=== PATIENT | male | born 1965 | race Caucasian/White ===

== ENCOUNTER 2025-03-13 17:36 | Emergency (ER) | payer BC, SELFPAY ==
--- NOTE | ~2025-03-13 | XR_ITS ---
CLINICAL HISTORY: pain 3 views lumbar spine Comparison: None Findings: Normal alignment. No acute fractures or dislocation. Moderate spondylosis at L5-S1 with disc space narrowing, endplate sclerosis, and facet arthropathy. IMPRESSION: No acute findings. Moderate spondylosis at L5-S1 with disc space narrowing, endplate sclerosis, and facet arthropathy. This document has been electronically signed by: Desi Fry MD on 03/13/2025 20:36:25
[2025-03-13 17:42] VITALS: BP 162/99; PULSE 76; O2SAT 99
[2025-03-13 17:48] VITALS: BP 146/79; PULSE 73; RESP 18; TEMP 36.8; O2SAT 98; BMI 32.4
[2025-03-13] MEDS: ondansetron HCL 4 MG/2 ML VIAL IVPUSH (19:28)
[2025-03-13] MEDS: dexAMETHasone sod phosphate 10 MG/ML VIAL IVPUSH (19:28)
[2025-03-13] MEDS: Morphine Sulfate 4 MG/ML CARTRIDGE IVPUSH (19:28)
[2025-03-13 19:30] VITALS: BP 142/76; PULSE 66; RESP 16; TEMP 37.1; O2SAT 95
--- NOTE | 2025-03-13 21:45 | ED_ITS ---
HPI - General Adult General Chief complaint: Back Pain/Injury Stated complaint: hurt back lifting golf bag Time Seen by Provider: 03/13/25 18:55 Source: patient, RN notes reviewed and old records reviewed Mode of arrival: ambulatory Limitations: no limitations History of Present Illness ED Provider: Kendy HPI narrative: 60-year-old male presents for evaluation of back pain. Patient reports a history of back pain. He reports 20 years ago he required an injection to his lower spine due to 3 disc herniations. Patient reports that his pain initially started today when he was attempting to take his golf bag out of the back of his car. he felt a sharp pain in his right lower back in weakness with numbness going down his toes the patient reports that he was able to stretch his back out and the pain improved he reports that he then went to get moseley for his for mother's day and when he bent down he felt a sharp pain again which caused him to fall to his knees he laid on the ground in his home for about an hour doing stretches which relieved the pain somewhat but any time he tried to move his pain worsened he reports that he can not stand up without the pain becoming severe denies any fevers, chills. He is not an IV drug abuser nor has he ever been Related Data Previous Rx's ?Medication ?Instructions ?Recorded dexamethasone 4 mg tablet 4 mg PO BID #6 tabs 03/13/25 oxycodone 5 mg tablet 5 mg PO Q6H PRN severe pain (scale 03/13/25 score 7-10) #12 tabs Allergies Allergy/AdvReac Type Severity Reaction Status Date / Time No Known Allergies Allergy Verified 03/13/25 17:53 Review of Systems 2 Constitutional: Constitutional: Denies body ache(s), Denies chills and Denies headache(s) Eyes: Eyes: Denies blurry vision ENT: Denies vertigo, Denies dizziness and Denies headache(s) Cardiovascular: Cardiovascular: Denies chest pain Gastrointestinal: Gastrointestinal: Denies abdominal pain, Denies nausea and Denies vomiting Musculoskeletal: Musculoskeletal: Reports back pain, Denies arthralgias, Denies joint swelling, Denies limited range of motion, Reports numbness, Reports radiating pain into limb, Reports stiffness and Reports tingling Integumentary/Breasts: Skin/Breast: Denies acne and Denies rash Neurologic: Denies vertigo, Denies dizziness, Denies headache(s), Reports numbness and Reports tingling Psychiatric: Psychiatric: Denies anxiety PMFSH Social History Social History Advance Directives: No Advance Directives Information Provided: Yes Do you have a plan to hurt others: No Plan Physical Exam ED Vital Signs: Vital Signs - 24 hr 03/13/25 17:48 03/13/25 19:30 03/14/25 06:14 Temperature 98.3 F 98.7 F 97.1 F Pulse Rate 73 66 64 Respiratory Rate 18 16 18 Blood Pressure 146/79 H 142/76 H 124/73 Pulse Oximetry 98 95 95 Oxygen Delivery Method Room Air Room Air Room Air BMI result Body Mass Index 32.4 Const General: healthy appearing, comfortable, no acute distress, alert and awake Nutritional Appearance: well nourished Orientation/consciousness: patient oriented x3 HENMT Head: Yes normocephalic and Yes atraumatic Eyes Eyelids: Yes eyelids normal Conjunctivae: conjunctivae normal Sclerae: sclerae normal Corneas: corneas normal Pupils: Equal, round and reactive pupils present EOM: EOMs intact bilaterally Neck Neck: Yes full ROM Resp Effort & Inspection: normal respiratory effort, able to speak in complete sentences and not labored Back/Spine/Pelvis Other: tenderness to the right lumbar paraspinous muscles. No vertebral tenderness. No step-off deformities. Straight leg raise positive bilaterally. Skin General skin exam: elasticity normal Neuro Other: I was initially unable to evaluate the patient has strength to lower extremities due to his pain. After receiving medication strength to bilateral lower extremities with major muscle groups 5/5 bilaterally to the quadriceps muscle group, hamstring muscle group as well as plantar flexion and dorsiflexion General: patient oriented x3 Cranial nerves: Yes Equal, round and reactive pupils present and Yes Bilaterally intact EOM present Cognition (Neuro): normal cognition Extrem Other: Moving all extremities well without any obvious deformities Medications Administered Generic Name Dose Route Start Last Admin Trade Name Freq PRN Reason Stop Dose Admin Oxycodone HCl 5 mg 03/13/25 22:05 03/14/25 06:02 Oxycodone Hcl Immed Release 5 Mg Tablet PO 5 mg Q6H PRN Administration Pain, Severe (Pain Scale 7-10) Discontinued Medications Generic Name Dose Route Start Last Admin Trade Name Freq PRN Reason Stop Dose Admin Cyclobenzaprine HCl 10 mg 03/14/25 07:39 03/14/25 08:03 Cyclobenzaprine Hcl 10 Mg Tablet PO 03/14/25 07:40 10 mg ONCE ONE Administration Dexamethasone Sodium Phosphate 10 mg 03/13/25 19:01 03/13/25 19:28 Dexamethasone Sod Phosphate 10 Mg/Ml Vial IVPUSH 03/13/25 19:02 10 mg ONCE ONE Administration Hydromorphone HCl 1 mg 03/13/25 21:38 03/13/25 22:03 Hydromorphone Hcl 1 Mg/Ml Syringe IVPUSH 03/13/25 21:39 1 mg ONCE ONE Administration Protocol Morphine Sulfate 4 mg 03/13/25 19:01 03/13/25 19:28 Morphine Sulfate 4 Mg/Ml Cartridge IVPUSH 03/13/25 19:02 4 mg ONCE ONE Administration Protocol Ondansetron HCl 4 mg 03/13/25 19:01 03/13/25 19:28 Ondansetron Hcl 4 Mg/2 Ml Vial IVPUSH 03/13/25 19:02 4 mg ONCE ONE Administration Medical Decision Making Medical Decision Making MDM Narrative: 60-year-old male presents for evaluation of acute on chronic back pain after lifting a golf bag 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 after pain medication, the patient's exam is quite reassuring, he has no weakness, he is not hyper reflexive. He is able to stand but still complains of pain to his lower back. his x-ray shows degenerative changes. He has no fever, he is not on active IV drug abuser, I doubt infectious process. Is likely that he has muscle spasms related to his injury today. No warning signs for cauda equina syndrome. There is no weakness, hyperreflexia, bladder or bowel incontinence or retention. I discussed options with the patient, including sending him home with analgesia and steroids with muscle relaxers versus staying in the hospital overnight for physical therapy and case management evaluation. The patient does not feel he will be able to get out of his car and into his home safely and would like to stay in the hospital overnight Patient 60 years old presented with chronic back pain. Was evaluated by physical therapy. Patient to be discharged home. In stable condition. Case management evaluated patient. Currently in stable condition. Patient was able to ambulate without any difficulty. There is no bowel urinary incontinence. There is no focal weakness. No signs of cauda equinus syndrome. Differential Diagnosis Differential Diagnoses: The differential diagnosis associated with the presentation includes acute on chronic back pain Radiculopathy Muscle strain Cauda equina syndrome less likely Admission/Observation Consideration of admission/observation: Escalation of care including admission/observation considered Lab Data 03/13/25 21:53 03/13/25 21:53 Labs: Lab Results 03/13/25 Range/Units 21:53 WBC 7.5 (4.8-10.8) X10*3/uL RBC 4.72 (4.60-5.80) X10*6/uL Hgb 16.0 (14.0-18.0) g/dl Hct 45.6 (42.0-52.0) % MCV 96.6 (80.0-98.0) fL MCH 33.9 H (27.0-33.0) pg MCHC 35.1 (31.0-36.0) g/dl RDW 13.2 (11.0-16.0) % Plt Count 229 (160-400) X10*3/uL MPV 8.4 L (9.4-12.4) fL Immature Gran % (Auto) 0.1 (0.0-0.4) % Neut % (Auto) 85.1 H (45-73) % Lymph % (Auto) 11.9 L (20-40) % [place] % (Auto) 1.7 L (2-11) % Eos % (Auto) 0.7 (0-4) % Baso % (Auto) 0.5 (0-2) % Lymph # (Auto) 0.9 L (1.2-4.9) X10*3/uL [place] # (Auto) 0.1 (0.1-1.2) X10*3/uL Eos # (Auto) 0.1 (0.0-0.4) X10*3/uL Baso # (Auto) 0.0 (0.0-0.2) X10*3/uL Abs Immat Gran (auto) 0.01 (0.00-0.03) X10*3/uL Absolute Neuts (auto) 6.4 (2.0-8.3) x10*3/uL Absolute Nucleated RBC 0.000 (0.0-0.012) X10*3/uL Nucleated RBC % (auto) 0.0 (0.0-0.2) /100WBC Sodium 140 (135-145) mmol/L Potassium 3.9 (3.3-5.1) mmol/L Chloride 103 (96-108) mmol/L Carbon Dioxide 27 (22-29) mmol/L Anion Gap 14 (12-20) BUN 10 (9-16) mg/dL Creatinine 0.83 (0.5-1.4) mg/dL Estim Creat Clear Calc 101.2 Estimated GFR > 60 Random Glucose 132 H (60-115) mg/dL Calcium 9.5 (8.4-10.2) mg/dL Radiology Impression Discussion of test interpretation with radiology: I have reviewed the radiologist's reading. Radiologist Impression: Findings: Normal alignment. No acute fractures or dislocation. Moderate spondylosis at L5-S1 with disc space narrowing, endplate sclerosis, and facet arthropathy. IMPRESSION: No acute findings. Moderate spondylosis at L5-S1 with disc space narrowing, endplate sclerosis, and facet arthropathy. This document has been electronically signed by: Desi Fry MD on 03/13/2025 20:36:25 Discharge Plan Discharge Clinical Impression: Low back pain Patient Disposition: Home, Self-Care Instructions: Acute Low Back Pain (ED) Additional Instructions: Take dexamethasone twice daily for the next 3 days. Your x-ray shows degenerative changes of your lower back you may benefit from an outpatient MRI you may use ibuprofen / Tylenol for pain you may use oxycodone for severe, breakthrough pain. This may make you drowsy, do not drink alcohol or drive after taking it Prescriptions: New oxycodone 5 mg tablet 5 mg PO Q6H PRN (Reason: severe pain (scale score 7-10)) Qty: 12 0RF Rx Instructions: Partial Fill upon patient request. dexamethasone 4 mg tablet 4 mg PO BID Qty: 6 0RF Referrals: Ko Giord[facility] [Primary Care Provider] - 03/16/25 Print Language: Lithuanian
[2025-03-13 22:01] LABS: MANUAL DIFF FLAG NO
[2025-03-13 22:02] LABS: Basophils Percent Auto 0.5 % (0-2); Eosinophils Absolute Auto 0.1 X10*3/uL (0.0-0.4); Eosinophils Percent Auto 0.7 % (0-4); Hematocrit 45.6 % (42.0-52.0); Imm Gran Abs Auto 0.01 X10*3/uL (0.00-0.03); Imm Gran Pct Auto 0.1 % (0.0-0.4); Lymphocytes Absolute Auto 0.9 X10*3/uL (1.2-4.9); Lymphocytes Percent Auto 11.9 % (20-40); Mean Corpuscular HGB Conc 35.1 g/dl (31.0-36.0); Mean Corpuscular Hemoglobin 33.9 pg (27.0-33.0); Mean Corpuscular Volume 96.6 fL (80.0-98.0); Mean Platelet Volume 8.4 fL (9.4-12.4); Monocytes Absolute Auto 0.1 X10*3/uL (0.1-1.2); Monocytes Percent Auto 1.7 % (2-11); Neutrophils Absolute Auto 6.4 x10*3/uL (2.0-8.3); Neutrophils Percent Auto 85.1 % (45-73); Platelet Count 229 X10*3/uL (160-400); Red Blood Count 4.72 X10*6/uL (4.60-5.80); Red Cell Distribution Width 13.2 % (11.0-16.0); White Blood Count 7.5 X10*3/uL (4.8-10.8)
[2025-03-13] MEDS: HYDROmorphone HCl 1 MG/ML SYRINGE IVPUSH (22:03)
[2025-03-13 22:13] LABS: Anion Gap 14 (12-20); Blood Urea Nitrogen 10 mg/dL (9-16); Calcium 9.5 mg/dL (8.4-10.2); Carbon Dioxide 27 mmol/L (22-29); Chloride 103 mmol/L (96-108); Creatinine Clr Calc Pharmacy 101.2; Estimated Glomerular Filt Rate > 60; Glucose Random 132 mg/dL (60-115); Potassium 3.9 mmol/L (3.3-5.1); Sodium 140 mmol/L (135-145)
--- NOTE | 2025-03-13 22:19 | PC.NURSE ---
pt helped to bathroom with wheelchair, pt did ok with pivot to wheelchair and used urinal in bathroom. medicated per jan. warm blankets given. resting comfortably in 8hall at this time.
--- NOTE | 2025-03-14 01:09 | MHC.EDTECH ---
assumed care of this pt
[2025-03-14] MEDS: oxyCODONE HCl Immed Release 5 MG TABLET PO (06:02)
[2025-03-14 06:14] VITALS: BP 124/73; PULSE 64; RESP 18; TEMP 36.2; O2SAT 95
[2025-03-14] MEDS: Cyclobenzaprine HCl 10 MG TABLET PO (08:03)
[2025-03-14 08:39] VITALS: BP 124/73; PULSE 64; O2SAT 95
[2025-03-14 10:17] VITALS: BP 124/73; PULSE 64; RESP 18; TEMP 36.2; O2SAT 95
--- NOTE | 2025-03-14 11:01 | MHC.CM.PN ---
CM RECEIVED CONSULT FOR THIS PT, HOWEVER HE WAS CLEARED FOR OUTPATIENT PT SERVICES. PT DISCHARGED FROM ED
== END 2025-03-14 10:19 | disposition home or self-care (01) ==
PROVIDERS: Physician Assistant; Emergency Provider Emergency Medicine Emergency Medical Services
DX: S39.92XA Unspecified injury of lower back, initial encounter (principal); M54.50 Low back pain, unspecified; R20.0 Anesthesia of skin; R26.81 Unsteadiness on feet; X50.0XXA Overexertion from strenuous movement or load, initial encounter; Y93.9 Activity, unspecified; Y92.9 Unspecified place or not applicable; Y99.8 Other external cause status
CPT/HCPCS: 36415; 72100; 80048; 85025; 96374; 96375; 97161; 99284; J1100; J1171; J2270; J2405

== ENCOUNTER → 2025-03-13 19:01 | Outpatient (BNV) | payer BC, SELFPAY | PROVIDERS: Visit Provider Student in an Organized Health Care Education/Training Program | DX: M54.50 Low back pain, unspecified (principal) | CPT/HCPCS: 72100 ==